=== PATIENT | male | born 1990 | race African-American/Black ===

== ENCOUNTER 2017-05-27 18:47 | Emergency (ER) | payer SELFPAY | END 2017-05-27 19:51 | disposition home or self-care (01) | LOC: NEPD 18:47 | DX: S05.01XA Injury of conjunctiva and corneal abrasion without foreign body, right eye, initial encounter (principal); W51.XXXA Accidental striking against or bumped into by another person, initial encounter; Y92.810 Car as the place of occurrence of the external cause; J45.909 Unspecified asthma, uncomplicated | CPT/HCPCS: 99283 ==